=== PATIENT | female | born 2000 | race Caucasian/White ===

== ENCOUNTER 2021-02-13 16:15 | Inpatient (IN) | payer OTHER ==
[~2021-02-13] VITALS: Ht 160 cm; Wt 84.8 kg
[~2021-02-13 16:15] MED LIST: NORCO 5-325 TA1 EACH PO
[2021-02-13 16:56] LABS: HEMOGLOBIN 12.2 gm/dl (12.3-15.3); RED BLOOD COUNT 4.06 M/UL (4.00-5.10); WHITE BLOOD COUNT 12.4 K/UL (4.5-11.0)
[2021-02-13] MEDS ORDERED: PRENATAL VITAM1 EAC3 PO (17:26)
[2021-02-15] MEDS ORDERED: IBUPROFEN800 MG PO (15:19)
[2021-02-15] MEDS ORDERED: DOCUSATE SODIU100 MG PO (15:19)
[2021-02-15] MEDS ORDERED: HYDROCODON-ACE1 EAC4 PO (15:19)
[2021-02-16 05:30] LABS: HEMOGLOBIN 10.9 gm/dl (12.3-15.3)
== END 2021-02-16 15:50 | disposition home or self-care (01) | DRG 807 ==
LOC: GENOP 16:15 → OB 16:37
PROVIDERS: Obstetrics & Gynecology; ADMIT Obstetrics & Gynecology
PROC: 10E0XZZ Delivery of Products of Conception, External Approach (ICD-10-PCS; principal; 2021-02-15)
PROC: 3E033VJ Introduction of Other Hormone into Peripheral Vein, Percutaneous Approach (ICD-10-PCS; 2021-02-15)
PROC: 10907ZC Drainage of Amniotic Fluid, Therapeutic from Products of Conception, Via Natural or Artificial Opening (ICD-10-PCS; 2021-02-15)
PROC: 0HQ9XZZ Repair Perineum Skin, External Approach (ICD-10-PCS; 2021-02-15)
DX: O99.824 Streptococcus B carrier state complicating childbirth (principal); Z37.0 Single live birth; Z3A.38 38 weeks gestation of pregnancy; O70.0 First degree perineal laceration during delivery
CPT/HCPCS: 36415; 51702; 81001; 82800; 85014; 85018; 85025; J0595; J2405; J2590; J2795; J7120; U0002

== ENCOUNTER → 2021-07-25 | Outpatient (CLI) | payer OTHER ==
[~2021-07-25] MED LIST changes: +DOCUSATE SODIU100 MG PO; +HYDROCODON-ACE1 EAC4 PO; +IBUPROFEN800 MG PO; +PRENATAL VITAM1 EAC3 PO
== END ==
LOC: KOH-I 10:47
DX: M25.552 Pain in left hip (principal); M25.551 Pain in right hip
CPT/HCPCS: 73522